=== PATIENT | female | born 1955 | race Two or more races ===

== ENCOUNTER 2018-07-15 13:22 | Outpatient (CLI) | payer OTHER | END 2018-07-15 13:49 | disposition home or self-care (01) | LOC: RAD 13:22 | DX: M25.512 Pain in left shoulder (principal); M25.561 Pain in right knee; M25.562 Pain in left knee; M25.572 Pain in left ankle and joints of left foot ==

== ENCOUNTER 2018-09-14 07:15 | Inpatient (IN) | payer OTHER ==
[2018-09-15] MEDS ORDERED: IBESARTAN (09:10)
[2018-09-22] MEDS ORDERED: AVAPRO75 MG PO (09:08)
[2018-09-23] MEDS ORDERED: TAMS0.4C PO (15:14)
[2018-09-23] MEDS ORDERED: AVAPRO300 MG PO (15:14)
== END 2018-09-24 16:50 | DRG 470 ==
LOC: EDSEX 09-22 05:35 → SURG 09-22 05:35 → O/R 09-22 05:35 → SURG 09-22 08:00
PROVIDERS: Orthopaedic Surgery
PROC: 0SRC0J9 Replacement of Right Knee Joint with Synthetic Substitute, Cemented, Open Approach (ICD-10-PCS; principal; 2018-09-22 13:30)
DX: M17.11 Unilateral primary osteoarthritis, right knee (principal); D62 Acute posthemorrhagic anemia; M85.661 Other cyst of bone, right lower leg; I10 Essential (primary) hypertension; N40.0 Benign prostatic hyperplasia without lower urinary tract symptoms

== ENCOUNTER 2021-12-13 08:30 | Inpatient (IN) | payer OTHER ==
[~2021-12-13] VITALS: Ht 165.1 cm; Wt 86.2 kg
[~2021-12-13 08:30] MED LIST: AVAPRO300 MG PO; AVAPRO75 MG PO; IBESARTAN; TAMS0.4C PO
[2021-12-13] MEDS ORDERED: HYDROCHLOROTHIA25 MG PO (11:38)
== END 2021-12-20 16:49 | DRG 470 ==
LOC: SURG 12-18 07:26 → O/R 12-18 07:26 → SURH 12-18 08:30 → SURG 12-18 22:09
PROVIDERS: ADMIT Orthopaedic Surgery; ATTEND Orthopaedic Surgery
PROC: 0SRD0J9 Replacement of Left Knee Joint with Synthetic Substitute, Cemented, Open Approach (ICD-10-PCS; principal; 2021-12-18 13:30)
DX: M17.12 Unilateral primary osteoarthritis, left knee (principal); D62 Acute posthemorrhagic anemia; M85.862 Other specified disorders of bone density and structure, left lower leg; M85.662 Other cyst of bone, left lower leg; I10 Essential (primary) hypertension

== ENCOUNTER 2022-03-13 11:06 | Outpatient (CLI) | payer OTHER ==
[~2022-03-13 11:06] MED LIST changes: +HYDROCHLOROTHIA25 MG PO
== END 2022-03-13 11:14 | disposition home or self-care (01) ==
LOC: RAD 11:06
PROVIDERS: ATTEND Orthopaedic Surgery
DX: M25.561 Pain in right knee (principal); M25.562 Pain in left knee